=== PATIENT | female | born 1950 | race Caucasian/White ===

== ENCOUNTER 2019-12-27 22:06 | Inpatient (IN) | payer MEDICARE, SELFPAY ==
--- NOTE | ~2019-12-27 | CT_ITS ---
EXAMINATION: CT brain wo con INDICATION: Confusion COMPARISON: None TECHNIQUE: Standard unenhanced head CT. The dose-length product (DLP) was 605.33 mGy-cm. The mA was a djusted according to patient size. Iterative reconstruction technique was employed. FINDINGS: There is no acute intraparenchymal hemorrhage. No evidence of mass lesion. No evidence of a cute infarction. There is mild periventricular and subcortical hypodensity probably related to small vessel ischemic disease. There is mild prominence of the sulci and ventricles related to cerebral atr ophy. Intracranial calcified cerebral atherosclerosis is noted. There are no extra-axial collections. There is no mass effect or midline shift. The orbits and soft tissues are unremarkable. The visuali zed sinuses and mastoid air cells are well aerated. IMPRESSION: 1. No acute intracranial abnormality. 2. Age related findings. Reviewed, dictated and finalized at location A. EL SLAGMAN
--- NOTE | ~2019-12-27 | XR_ITS ---
EXAMINATION: XR chest 1V portable DATE: 12/30/2019 05:40 INDICATION: Respiratory failure. TECHNIQUE: A single frontal view of the chest was obtained. COMPARISON: Chest single view 12/29/2019, CT abdomen and pelvis 12/28/2019 FINDINGS: There are airspace opacities throughout the lungs bilaterally. No pleural effusion or pneum othorax. The heart size is normal. A right internal jugular central venous catheter is seen with tip in the superior vena cava. IMPRESSION: 1. Diffuse lung disease with worsening at the lung bases, consistent with pulmonary edema versus pneu monia versus acute respiratory distress syndrome (ARDS). Reviewed, dictated and finalized at location A. LATORY AND COMPLIANCE TECHNICIAN IMPRESSION: 1. Diffuse lung disease with worsening at the lung bases, consistent with pulmo nary edema versus pneumonia versus acute respiratory distress syndrome (ARDS).
--- NOTE | ~2019-12-27 | CT_ITS ---
EXAMINATION: CT abdomen pelvis wo con DATE: 12/28/2019 01:46 INDICATION: Abdominal distention. TECHNIQUE: Computed tomography (CT) of the abdomen and pelvis was performed without intravenous contr ast. Automated exposure control and iterative reconstruction technique were employed. The dose-length product was 1587.67 mGy-cm. COMPARISON: None FINDINGS: Patchy groundglass opacities in the lingula, right middle and bilateral lower lobes with additional m ore nodular/masslike region of consolidation in the left lower lobe. Small bilateral layering pleural effusions. Heart size is normal. Atherosclerotic coronary artery calcifications and aortic valve vianney cifications. No pericardial effusion. Small amount of predominantly perihepatic ascites. Nodular live r surface consistent with cirrhosis. Pneumobilia within the common bile duct consistent with given hi story of prior biliary stenting. Spleen and bilateral adrenal glands are normal. Atrophic pancreas. B ilateral kidneys are normal with no urolithiasis or hydronephrosis. Right hemicolectomy. No dilated bowel to suggest obstruction. Nonspecific fluid throughout the small bowel and colon consistent with diarrhea. Small Jacob hernia of the colon immediately proximal to t he anastomosis without evident wall thickening or inflammatory stranding surrounding the herniated se gment. Weiss catheter within the decompressed bladder. The uterus and ovaries are not identified and have likely been surgically resected. There is calcified atherosclerosis of the aorta and many of the other arteries. Severe lower lumbar spondylosis. Diffuse body wall edema at the abdomen and pelvis a nd extending into the proximal thighs. IMPRESSION: 1. Status post right hemicolectomy with nonobstructing small Jacob hernia of the colon immediately distal to the anastomosis. No evident wall thickening or inflammatory stranding associated with the h erniated segment. 2. Fluid throughout the small bowel and colon consistent with diarrhea. Correlate clinically for ange roenteritis/enteritis. 3. Cirrhosis with small amount of perihepatic ascites. 4. Airspace disease in the lower lungs with nodular/masslike consolidation in the left lower lobe con sistent with pneumonia potentially with associated pulmonary edema. Recommend radiographic follow-up to resolution. 5. Small bilateral pleural effusions. Reviewed, dictated and finalized at location A. MOTIVE SERVICE PORTER IMPRESSION: 1. Status post right hemicolectomy with nonobstructing small Jacob hernia of the colon immediately distal to the anastomosis. No evident wall thickening or inflammatory stranding associated with the herniated segment. 2. Fluid throughout the small bowel and colon consistent with diarrhea. Correla te clinically for gastroenteritis/enteritis. 3. Cirrhosis with small amount of perihepatic ascites. 4. Airspace disease in the lower lungs with nodular/masslike consolidation in t he left lower lobe consistent with pneumonia potentially with associated pulmon mariam edema. Recommend radiographic follow-up to resolution. 5. Small bilateral pleural effusions.
--- NOTE | ~2019-12-27 | US_ITS ---
EXAMINATION: US renal BI DATE: 12/29/2019 14:32 INDICATION: Acute renal failure. TECHNIQUE: Multiple ultrasound grayscale images of the kidneys were obtained. COMPARISON: CT abdomen and pelvis 12/28/2019 FINDINGS: The right kidney measures 10.0 x 5.1 x 5.0 cm. The left kidney measures 10.1 x 5.5 x 4.3 cm. The kidn eys demonstrate normal parenchymal echogenicity. There is no hydronephrosis. The bladder is decompres sed by a Weiss catheter. The liver demonstrates surface nodularity, consistent with cirrhosis. There is a small volume of ascites. IMPRESSION: 1. Normal kidney sizes. No hydronephrosis. 2. Cirrhosis of the liver. 3. Small volume of ascites. Reviewed, dictated and finalized at location A. GER VALIDATION
--- NOTE | ~2019-12-27 | XR_ITS ---
EXAMINATION: XR chest 1V portable INDICATION: Shortness of breath and transient alteration of awareness TECHNIQUE: Portable AP chest at 2317 hours COMPARISON: None available FINDINGS: There our diffuse airspace opacities, worst in the lung bases. Cardiomegaly is noted. No de finite pleural effusion or pneumothorax is identified. The visualized osseous structures are unremark able. IMPRESSION: 1. Diffuse lung disease, worst in the lung bases, consistent with atelectasis versus pneumonia versus pulmonary edema. 2. Cardiomegaly. Reviewed, dictated and finalized at location A. SUPERVISOR IMPRESSION: 1. Diffuse lung disease, worst in the lung bases, consistent with atelectasis v ersus pneumonia versus pulmonary edema. 2. Cardiomegaly.
--- NOTE | ~2019-12-27 | XR_ITS ---
EXAMINATION: XR chest 1V portable DATE: 12/29/2019 05:47 INDICATION: Respiratory failure TECHNIQUE: frontal view of the chest was obtained. COMPARISON: Chest radiograph dated 12/28/2019 FINDINGS: Right internal jugular central venous catheter with distal tip in the midsuperior vena cava. Interval progression of diffuse bilateral airspace opacities. No pleural effusion or pneumothorax. Th e cardiomediastinal silhouette is normal. IMPRESSION: 1. Progression of diffuse bilateral lung disease consistent with pulmonary edema and/or pneumonia. Reviewed, dictated and finalized at location A. R TENDER IMPRESSION: 1. Progression of diffuse bilateral lung disease consistent with pulmonary obie a and/or pneumonia.
--- NOTE | ~2019-12-27 | XR_ITS ---
EXAMINATION: XR chest port-a-cath/central DATE: 12/28/2019 05:31 INDICATION: Central line placement TECHNIQUE: frontal view of the chest was obtained. COMPARISON: Chest radiograph dated 12/27/2019 FINDINGS: Right internal jugular central venous catheter with distal tip at the midsuperior vena cava. Again se en are diffuse bilateral interstitial and airspace opacities with with basilar and perihilar predomin ance. Small left pleural effusion. No pneumothorax. The cardiomediastinal silhouette is normal. IMPRESSION: 1. Right internal jugular central venous catheter in expected position with no pneumothorax. 2. No significant change in diffuse bilateral perihilar and basilar predominant lung disease consiste nt with pulmonary edema versus pneumonia. 3. Small left pleural effusion. Reviewed, dictated and finalized at location A. PERSON IMPRESSION: 1. Right internal jugular central venous catheter in expected position with no pneumothorax. 2. No significant change in diffuse bilateral perihilar and basilar predominant lung disease consistent with pulmonary edema versus pneumonia. 3. Small left pleural effusion.
--- NOTE | 2019-12-27 22:14 | ECG_ITS ---
Measurements Intervals [place] Rate: 85 P: 78 NV: 157 QRS: 72 QRSD: 98 T: -60 QT: 314 QTc: 375 Interpretive Statements SINUS RHYTHM LOW QRS VOLTAGE IN LIMB LEADS BORDERLINE ST-T WAVE ABNORMALITY- DIFFUSE LEADS BASELINE ARTIFACT- II, III, AVF, V1-V5, V6 BORDERLINE ECG Electronically Signed On 12-28-2019 7:02:08 COP EXAMINER by Bertrand Crump D.O.
[2019-12-27 22:16] VITALS: BP 101/45; PULSE 83; RESP 16; TEMP 36.6; O2SAT 100
--- NOTE | 2019-12-27 22:18 | ED.SOB ---
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 Pt was found with an O2 saturation of 78% on room air and AMS by nursing staff. Pt?s O2 saturation improved to 80% on 3L NC. EMS initiated a non-rebreather at 15L at her O2 saturation increased to 98%. Pt?s Lasix were discontinued today d/t abnormal renal functions. Pt was on abx for a recent UTI. Pt?s family was at bedside and provided the information. Pt has had multiple falls in the last week. Pt was working two weeks ago. Pt was went to [facility] ED a few weeks ago for frequent falls and weakness. Pt's family states the pt was transferred from [facility] ED to [facility] for an ERCP biliary stent placement and then removed. Pt was d/c from [facility] on 12/20/19 and sent to [place] for rehab. Pt's family also reports the pt has had increased confusion. She states the pt's NH nurses are unsure if the pt is taking her medication. Patient has not been eating or drink either. Pt has been on oxygen since she arrived to [place], but the pt's family states the pt is not on oxygen at baseline. Per pt, pt also reports lower back pain, but denies CP and ABD pain. HPI is limited due to pt's clinical condition. MD elicited complaint: shortness of breath (and decreased level of consciousness) Pertinent past history: COPD and diabetes Onset (ago): minute(s) Timing: constant Severity: moderate Known history of: COPD and diabetes Associated symptoms: other (increased confusion, lower back pain) Treatment prior to arrival: oxygen Related Data Home oxygen amount: none Home Medications Medication Instructions Recorded Confirmed albuterol sulfate 90 mcg/actuation 1 puff INHALATION Q4H PRN 09/20/19 aerosol inhaler atorvastatin 10 mg tablet 10 mg PO DAILY 09/20/19 calcium-vitamin D2-iron mg PO 09/20/19 cetirizine 10 mg tablet 10 mg PO DAILY PRN tablet 09/20/19 cholecalciferol (vitamin D3) 125 5,000 unit PO DAILY 09/20/19 mcg (5,000 unit) capsule cholecalciferol (vitamin D3) 25,000 unit PO WEEKLY 09/20/19 25,000 unit capsule citalopram 20 mg tablet 20 mg PO DAILY 09/20/19 cyanocobalamin (vitamin B-12) 100 mcg SUB-Q MONTHLY 09/20/19 1,000 mcg/mL injection kit folic acid 1 mg tablet 1 mg PO DAILY 09/20/19 furosemide 20 mg tablet 20 mg PO QAM 09/20/19 gabapentin 800 mg tablet 800 mg PO QID tablet 09/20/19 melatonin 10 mg tablet 20 mg PO DAILY tablet 09/20/19 metformin 500 mg tablet 500 mg PO BID 09/20/19 metoprolol succinate 50 mg 50 mg PO DAILY 09/20/19 tablet,extended release 24 hr pantoprazole 40 mg tablet,delayed 40 mg PO QAM 09/20/19 release potassium chloride 20 mEq 20 meq PO DAILY 09/20/19 tablet,extended release tramadol 50 mg tablet 100 mg PO .qhs PRN tablet 09/20/19 Allergies Allergy/AdvReac Type Severity Reaction Status Date / Time doxycycline Allergy Unknown Rash Verified 12/27/19 22:36 indomethacin Allergy Unknown Rash Verified 12/27/19 22:36 mesalamine [From Asacol] Allergy Unknown Hives Verified 12/27/19 22:36 Review of Systems Review of Systems: ROS unobtainable: other (limited due to pt's clinical condition) Cardiovascular: Cardiovascular: Denies chest pain Respiratory: Respiratory: Reports dyspnea Gastrointestinal: Gastrointestinal: Denies abdominal pain Musculoskeletal: Musculoskeletal: Reports back pain (lower) Neurologic: Reports confusion and Reports other (decreased level of consciousness) [facility] Past Medical History Medical History (Updated 12/28/19 @ 08:27 by Windy Mccullough MD) Anemia Arthritis Cirrhosis CO
[2019-12-27 22:38] VITALS: PULSE 83
[2019-12-27 22:53] LABS: Alveolar/Arterial O2 Gradient 587.6 mmHg; Base Excess ABG -6.8 mEq/l (+/-2.0); Fractional Inspired Oxygen 100 %; HCO3 ABG 19.8 mEq/l (22.0-26.0); Oxygen Content ABG 13.5 %vol (16.0-22.0); Oxygen Saturation ABG 94.5 % (95.0-100.0); Oxyhemoglobin 93.1 % THb (90.0-100.0); PCO2 ABG 44.2 mmHg (35.0-45.0); PO2 ABG 81.2 mmHg (80.0-100.0); PO2 FiO2 Ratio Arterial Blood 0.81 %; Total Hemoglobin 10.2 g/dL (12.0-18.0)
[2019-12-27 22:56] LABS: Glucose Point of Care 90 (65-105)
[2019-12-27 22:56] LABS: Modified Allen's Test Pass; Site Drawn LEFT RADIAL; pH ABG 7.269 (7.350-7.450)
[2019-12-27 22:57] LABS: Device NON-REBREATHER MASK
[2019-12-27 23:45] VITALS: BP 108/46; PULSE 84; RESP 14; O2SAT 98
[2019-12-28] VITALS (22 sets, daily range): BP systolic 89–115; BP diastolic 35–69; PULSE 81–107; RESP 14–28; TEMP 36.9–37.2; O2SAT 90–100; BMI 43.9
[2019-12-28 00:02] LABS: Basophils Percent Auto 0.3 % (0.2-1.2); Eosinophils Absolute Auto 0.1 K/mm3 (0-0.3); Eosinophils Percent Auto 0.7 % (0-4.4); Hematocrit 32.7 % (37.0-47.0); Hemoglobin 10.3 g/dL (12.0-15.0); Immature Granulocyte Absolute 0.05 K/mm3 (0.00-0.031); Immature Granulocyte Percent A 0.7 % (0-0.5); Lymphocytes Absolute Auto 0.84 K/mm3 (0.9-3.2); Lymphocytes Percent Auto 11.4 % (18.3-44.2); Mean Corpuscular HGB Conc 31.5 g/dl (32-36); Mean Corpuscular Hemoglobin 30.9 pg (26-34); Mean Corpuscular Volume 98.2 fl (80-100); Mean Platelet Volume 12.5 fl (7.4-10.4); Monocytes Absolute Auto 0.7 K/mm3 (0.1-0.6); Neutrophils Absolute Auto 5.7 K/mm3 (1.3-6.7); Neutrophils Percent Auto 77.9 % (45.5-73.1); Platelet Count Result 117 k/mm3 (150-375); Red Blood Count 3.33 M/mm3 (4.2-5.4); Red Cell Distribution Width 21.6 % (11.5-14.5); White Blood Count 7.4 K/mm3 (4.5-10.0)
[2019-12-28 00:12] LABS: INR 2.1; Prothrombin Time 23.3 Seconds (11.1-14.7)
[2019-12-28 00:13] LABS: Partial Thromboplastin Time 49.4 SECONDS (22.3-36.8)
[2019-12-28 00:14] LABS: Lactic Acid Reflex 2.4 mmol/L (0.7-2.1)
[2019-12-28 00:16] LABS: Ammonia < 9 umol/L (9-30)
[2019-12-28 00:17] LABS: Alanine Aminotransferase 38 U/L (4-35); Albumin Level 2.1 g/dL (3.5-5.1); Alkaline Phosphatase 235 U/L (38-126); Aspartate Amino Transferase 60 U/L (14-36); Bilirubin,Total 3.3 mg/dL (0.2-1.3); Blood Urea Nitrogen 58 mg/dL (7-17); Carbon Dioxide 16 mmol/L (22-30); Chloride 118 mmol/L (98-107); Estimated Glomerular Filt Rate 15; Glucose 95 mg/dL (65-105); Lipase 27 U/L (23-300); Magnesium 2.1 mg/dL (1.6-2.3); Potassium 5.5 mmol/L (3.4-5.0); Sodium 146 mmol/L (137-145)
[2019-12-28 00:27] LABS: NT Pro B Type Natriuretic Pept 2250 PG/ML (5-100); Troponin I 0.024 ng/mL (0.000-0.034)
[2019-12-28] MEDS: ALBUTEROL SULFATE NEB 2.5 MG/0.5 ML INH 10 MG INHALATION (00:43)
[2019-12-28 00:53] LABS: Add Urine Microscopic? YES; Appearance Urine Clear (Clear); Bilirubin Urine Negative (Negative); Blood Urine Negative (Negative); Color Urine Amber (Yellow); Glucose Urine UA Negative (Negative); Ketones Urine Negative (Negative); Leukocyte Esterase Ur Negative LEU/UL (Negative); Nitrate Urine Negative (Negative); Protein Urine Negative (Negative); Specific Grav Ur 1.017 (1.001-1.035); Urobilinogen Urine Negative mg/dL (<2.0)
[2019-12-28 02:59] LABS: Reflex Lactic Acid Yes or No Add Lactic
--- NOTE | 2019-12-28 03:06 | PC.NURSE ---
Main lab was called to draw lactic ordered for pt. Lab stated that previous attempts to draw took multiple attempts and believed any further attempts would be unsuccessful. Charge nurse Zhane Bradley and nurse Mary Campos notified.
[2019-12-28] MEDS: NOREPINEPHRINE 8 MG/D5W 250 ML 8 MG/250 ML BAG 9.4 MG IV CONT (05:58)
--- NOTE | 2019-12-28 06:21 | PM.IMHP ---
H&P: HPI History of Present Illness Chief complaint: acute renal failure,pneumonia,chf Narrative: Caren Garnica is a 69 year old female the patient recently was placed in [facility] a stay with [facility] for liver failure. The patient is currently add DNR. The patient had a sudden onset of shortness of breath and decreased level of consciousness just prior to arrival. The son stated that the patient's ammonia level had gone back to normal. Patient's O2 pulse ox was 78% on room air. Patient was placed on a non-rebreather at 15 L in her oxygen level increased to 98%. Patient was recently diagnosed with MRSA to her right hand in abdomen. The patient had been discharged from a [facility] on in sent to [place] for rehab. Is unsure if the patient was taking her medications at [place]. Patient is confused at this time and not able to answer any questions or son is at the bedside and answered questions. Her BMP was found to be 2250. Total bilirubin 3.3. Alkaline phosphatase 235. Patient was started on Zosyn and vancomycin. Patient appeared to be septic and a central line was placed per ED provider patient was started on Levophed. Date of service 12/28/2019 Review of Systems Review of Systems: Narrative: And information was obtained from the son and old records. All systems reviewed & are unremarkable except as noted in HPI and below Constitutional: Constitutional: Reports as per HPI and Reports no additional constitutional complaints Eyes: Eyes: Reports as per HPI and Reports no additional eye complaints ENT: Reports system reviewed and no additional complaints, except as documented and Reports Normal hearing present Cardiovascular: Cardiovascular: Reports no additional cardiovascular complaints Respiratory: Respiratory: Reports no additional respiratory complaints and Reports no additional respiratory complaints Gastrointestinal: Gastrointestinal: Reports as per HPI and Reports no additional gastrointestinal complaints Musculoskeletal: Musculoskeletal: Reports no additional musculoskeletal complaints Integumentary/Breasts: Skin/Breast: Reports system reviewed and no additional complaints, except as docu and Reports as per HPI Neurologic: Reports system reviewed and no additional complaints, except as documented, Reports as per HPI and Reports Normal hearing present Psychiatric: Psychiatric: Reports no additional psychiatric complaints and Reports as per HPI Endocrine: Endocrine: Reports no additional endocrine complaints Hematologic/Lymphatic: Hematologic/Lymphatic: Reports no additional hematologic/lymphatic complaints Allergic/Immunologic: Allergic/Immunologic: Reports no additional allergic/immunologic complaints [facility] Past Medical History Medical History Anemia Arthritis Cirrhosis COPD (chronic obstructive pulmonary disease) Crohn's disease Depression Diabetes DNR (do not resuscitate) Frequent falls Generalized osteoarthritis of multiple sites MRSA (methicillin resistant Staphylococcus aureus) Pancreatitis 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 Rapid heart rate Seronegative rheumatoid arthritis of both hands UTI (urinary tract infection) Vitamin D deficiency Weight loss, abnormal Surgical History Surgical History H/O vaginal hysterectomy History of bowel resection x2 History of cholecystectomy History of ERCP History of knee replacement Hx of appendectomy Stented coronary artery Family History Family History Father Cancer Grandparent Cerebrovascular accident Grandparent Cerebrovascular accident Grandparent Cancer Social History Social History Social History: Patient is [place] to Braden who is her durable power mergers and acquisitions attorney for healt
--- NOTE | 2019-12-28 06:30 | ADMGEN ---
This patient, Caren Garnica, was admitted to Intensive Care Unit-6. Patient/family oriented to hospital policies and general routines including ID bracelet, bed and alarms, visiting hours, pain management, procedures, bathroom and other care routines, personal items, smoking policy, room service/diet, and visiting hours. Valuables list has been completed. Information on how to activate the Rapid Response Team has been discussed. Patient/Family are encouraged to report perceived risks to care and to ask questions if they do not understand what they are told or what they should do.
[2019-12-28 06:49] LABS: Alveolar/Arterial O2 Gradient 204.6 mmHg; Base Excess ABG -8.7 mEq/l (+/-2.0); Fractional Inspired Oxygen 44 %; HCO3 ABG 17.3 mEq/l (22.0-26.0); Oxygen Content ABG 12.6 %vol (16.0-22.0); Oxygen Saturation ABG 90.7 % (95.0-100.0); Oxyhemoglobin 88.1 % THb (90.0-100.0); PCO2 ABG 37.8 mmHg (35.0-45.0); Total Hemoglobin 10.1 g/dL (12.0-18.0)
[2019-12-28 06:50] LABS: Device NASAL CANNULA; Modified Allen's Test Pass; Site Drawn LEFT RADIAL; pH ABG 7.279 (7.350-7.450)
[2019-12-28 07:07] LABS: Lactic Acid 2.2 mmol/L (0.7-2.1)
[2019-12-28 07:08] LABS: Alanine Aminotransferase 37 U/L (4-35); Albumin Level 2.1 g/dL (3.5-5.1); Alkaline Phosphatase 221 U/L (38-126); Aspartate Amino Transferase 54 U/L (14-36); Bilirubin,Total 3.2 mg/dL (0.2-1.3); Blood Urea Nitrogen 56 mg/dL (7-17); Calcium 7.9 mg/dL (8.4-10.2); Carbon Dioxide 19 mmol/L (22-30); Chloride 119 mmol/L (98-107); Estimated CRCL calculation 17 ml/min; Estimated Glomerular Filt Rate 13; Glucose 114 mg/dL (65-105); Sodium 145 mmol/L (137-145)
[2019-12-28 07:12] LABS: Basophils Percent Auto 0.1 % (0.2-1.2); Eosinophils Percent Auto 0.5 % (0-4.4); Hematocrit 27.7 % (37.0-47.0); Immature Granulocyte Absolute 0.07 K/mm3 (0.00-0.031); Immature Granulocyte Percent A 0.9 % (0-0.5); Immature Platelet Fraction Pct 7.5 % (0.9-11.2); Lymphocytes Absolute Auto 0.53 K/mm3 (0.9-3.2); Lymphocytes Percent Auto 6.8 % (18.3-44.2); Mean Corpuscular HGB Conc 32.5 g/dl (32-36); Mean Corpuscular Hemoglobin 31.1 pg (26-34); Mean Corpuscular Volume 95.8 fl (80-100); Monocytes Absolute Auto 0.7 K/mm3 (0.1-0.6); Monocytes Percent Auto 8.5 % (2.6-8.5); Neutrophils Absolute Auto 6.5 K/mm3 (1.3-6.7); Neutrophils Percent Auto 83.2 % (45.5-73.1); Platelet Count Result 113 k/mm3 (150-375); Red Blood Count 2.89 M/mm3 (4.2-5.4); Red Cell Distribution Width 21.2 % (11.5-14.5); White Blood Count 7.8 K/mm3 (4.5-10.0)
[2019-12-28] MEDS: SODIUM CHLORIDE 0.9% IV 500 ML IV CONT (08:08)
[2019-12-28 08:15] LABS: Glucose Point of Care 119 (65-105)
[2019-12-28] MEDS: ALBUTEROL SULFATE NEB 2.5 MG/0.5 ML INH 5 MG INHALATION ×3 (08:20→20:42)
[2019-12-28] MEDS: IPRATROPIUM BR 0.02% INH SOLN 0.5 MG/2.5 ML VIAL INHALATION ×3 (08:20→20:42)
--- NOTE | 2019-12-28 08:49 | WPDCNINT ---
Assessment and Plan Assessment and plan (1) Septic shock: Code(s): A41.9 - Sepsis, unspecified organism; R65.21 - Severe sepsis with septic shock Status: Acute Assessment and Plan: Secondary to HCAP Pt is overall voluem overloaded and also DNR/DNI hence didnt receive 30 ml/kg IVF bolus On levophed I will give small 500 ml IVF bolus and add IV albumin Cultures On empiric Vanc and Zosyn Check Flu (2) HCAP (healthcare-associated pneumonia): Code(s): J18.9 - Pneumonia, unspecified organism Status: Acute Assessment and Plan: See above (3) Acute renal failure (ARF): Code(s): N17.9 - Acute kidney failure, unspecified Status: Acute Assessment and Plan: Likley secondary to sepsis and intranvascular voluem depletion from diuresis Diuretics held Gentle hydration with IVF with bicarb in light of overall volume overload IV albumin Bicarb to treat acidosis Monitor U/O and labs Pt doesn't want HD if needed (4) Acidosis: Code(s): E87.2 - Acidosis Status: Acute Assessment and Plan: Gentle hydration with IVF with bicarb PO bicarb (5) Cirrhosis: Code(s): K74.60 - Unspecified cirrhosis of liver Status: Chronic Assessment and Plan: Ammonia level normal Vit K for elevated INR IV Albumin (6) Anemia: Code(s): D64.9 - Anemia, unspecified Status: Chronic Assessment and Plan: Monitor (7) COPD (chronic obstructive pulmonary disease): Code(s): J44.9 - Chronic obstructive pulmonary disease, unspecified Status: Chronic Assessment and Plan: PRN Duoneb (8) CHF (congestive heart failure): Code(s): I50.9 - Heart failure, unspecified Status: Acute (9) Diabetes: Code(s): E11.9 - Type 2 diabetes mellitus without complications Status: Chronic Assessment and Plan: SSI Additional Plan SCD for DVTP Home PPI confirmed Pt is DNR and DNI. Also doesn't want dialysis if needed. I confirmed this with pt and her son and daughter at bedside. Updated them with pt's status and treatment plan Due to a high probability of clinically significant, life threatening deterioration, the patient required my highest level of preparedness to intervene emergently and I personally spent this critical care time directly and personally managing the patient. This critical care time included obtaining a history; examining the patient; pulse oximetry; ordering and review of studies; arranging urgent treatment with development of a management plan; evaluation of patient's response to treatment; frequent reassessment; and discussions with other providers. It was exclusive of separately billable procedures and treating other patients and teaching time. Please see Assessment and Plan section and the rest of the note for further information on patient assessment and treatment Cashier Manager Consult Note Consult date: 12/28/19 Time Seen: 08:30 HPI: Caren Garnica is a 69 year old female was sent from [place] with low oxygen levels. She was in [place] for rehab and was recently discharged from [facility]. In ED she was found to be hypoxic and was placed on 15 L NC. CXR showed infiltrate and w/u showed ANGELIQUE. Pt was also hypotensive. She was started on abx, levophed and admitted to ICU This morning she feels better. She denies any complaints and not sure why she is here. pt is poor historian and doesn't have any complaints at this time Review of Systems Review of Systems: Narrative: Pt essentially says No to all complaints. Not sure how reliable it is. She says no to pain, dyspnea, cough, chest pain, abdominal pain or fever ROS unobtainable: unobtainable due to mental condition PMFSH Past Medical History Medical History Anemia Arthritis Cirrhosis COPD (chronic obstructive pulmonary disease) Crohn's disease Depression Diabetes DNR (do not resuscitate) Frequent falls Genera
[2019-12-28] MEDS: ALBUMIN HUMAN 25% 25 GM/100 ML 100 ML IVPB ×3 (08:51→21:12)
--- NOTE | 2019-12-28 09:22 | PM.IMPN ---
Progress Note: A&P Assessment and Plan (1) Septic shock: Code(s): A41.9 - Sepsis, unspecified organism; R65.21 - Severe sepsis with septic shock Status: Acute Assessment and Plan: Remains in ICU. Remains on Levophed. Blood pressure reviewed on 12/28/2019 and stable. Telemetry reviewed on 12/28/2019 with sinus rhythm. Discussed with lead process engineer. Plan for small bolus of IV fluids with IV albumin. Blood cultures negative thus far. MRSA nasal culture pending. Influenza screen negative in the ER. Continue IV vancomycin and Zosyn. Will continue to monitor closely. Patient is DNR/DNI. (2) HCAP (healthcare-associated pneumonia): Code(s): J18.9 - Pneumonia, unspecified organism Status: Acute Assessment and Plan: Imaging with diffuse bilateral lung disease. Continue IV antibiotics as noted above. Influenza screen negative as above. Continue nebulizer treatments. Will monitor. (3) Acute renal failure (ARF): Qualifiers: Acute renal failure type: unspecified Qualified Code(s): N17.9 - Acute kidney failure, unspecified Code(s): N17.9 - Acute kidney failure, unspecified Status: Acute Assessment and Plan: Creatinine 3.50 today. Will continue to monitor with treatment of infection. Does not want hemodialysis. (4) Acidosis: Code(s): E87.2 - Acidosis Status: Acute Assessment and Plan: IV fluids as noted above. Will continue to monitor. Oral bicarb started. (5) Cirrhosis: Qualifiers: Hepatic cirrhosis type: unspecified hepatic cirrhosis Ascites presence: unspecified Qualified Code(s): K74.60 - Unspecified cirrhosis of liver Code(s): K74.60 - Unspecified cirrhosis of liver Status: Chronic Assessment and Plan: Continue to monitor with infectious process as noted above. (6) Anemia: Qualifiers: Anemia type: unspecified type Qualified Code(s): D64.9 - Anemia, unspecified Code(s): D64.9 - Anemia, unspecified Status: Chronic (7) COPD (chronic obstructive pulmonary disease): Qualifiers: COPD type: unspecified COPD Qualified Code(s): J44.9 - Chronic obstructive pulmonary disease, unspecified Code(s): J44.9 - Chronic obstructive pulmonary disease, unspecified Status: Chronic Assessment and Plan: Continue respiratory treatments as noted above. (8) CHF (congestive heart failure): Qualifiers: Heart failure type: unspecified Heart failure chronicity: chronic Qualified Code(s): I50.9 - Heart failure, unspecified Code(s): I50.9 - Heart failure, unspecified Status: Acute Assessment and Plan: Will be careful with rehydration. Will continue to monitor. (9) Diabetes: Qualifiers: Diabetes mellitus type: type 2 Diabetes mellitus adjunct faculty for medical terminology insulin use: without senior living use Diabetes mellitus complication status: without complication Qualified Code(s): E11.9 - Type 2 diabetes mellitus without complications Code(s): E11.9 - Type 2 diabetes mellitus without complications Status: Chronic Assessment and Plan: Hold home medications. Will continue to monitor glucose. Sliding scale insulin available as needed. (10) Depression: Qualifiers: Depression Type: unspecified Qualified Code(s): F32.9 - Major depressive disorder, single episode, unspecified Code(s): F32.9 - Major depressive disorder, single episode, unspecified Status: Chronic Assessment and Plan: Home medications not reconciled but appears to be on citalopram at home. Will hold for now but restart when appropriate. (11) DVT prophylaxis: Code(s): Z29.9 - Encounter for prophylactic measures, unspecified Status: Acute Assessment and Plan: SCDs. Time Spent With Patient Time with patient: 15 - 25 minutes Subjective Date/time seen: 12/28/19 09:22 Interval history: Date of Service: 12/28/2019. Ad
[2019-12-28] MEDS: SODIUM BICARBONATE 8.4% 150 MEQ in DEXTROSE 5% 1,000 ML 950 ML 50 MEQ IV CONT (11:22)
[2019-12-28 11:41] LABS: Influenza Control Positive
[2019-12-28 11:46] LABS: Ammonia < 9 umol/L (9-30)
[2019-12-28 12:26] LABS: Glucose Point of Care 108 (65-105)
[2019-12-28 17:40] LABS: Glucose Point of Care 100 (65-105)
[2019-12-28] MEDS: SODIUM BICARBONATE TAB 650 MG TABLET 1300 MG PO (17:47)
[2019-12-28] MEDS: NOREPINEPHRINE 8 MG/D5W 250 ML 8 MG/250 ML BAG 22.5 MG IV CONT (18:17)
--- NOTE | 2019-12-28 19:25 | PM.CNNEP ---
Assessment and Plan Assessment and plan (1) Acute renal failure (ARF): Qualifiers: Acute renal failure type: unspecified Qualified Code(s): N17.9 - Acute kidney failure, unspecified Code(s): N17.9 - Acute kidney failure, unspecified Status: Acute (2) Septic shock: Code(s): A41.9 - Sepsis, unspecified organism; R65.21 - Severe sepsis with septic shock Status: Acute (3) HCAP (healthcare-associated pneumonia): Code(s): J18.9 - Pneumonia, unspecified organism Status: Acute (4) Cirrhosis: Qualifiers: Ascites presence: unspecified Hepatic cirrhosis type: unspecified hepatic cirrhosis Qualified Code(s): K74.60 - Unspecified cirrhosis of liver Code(s): K74.60 - Unspecified cirrhosis of liver Status: Chronic (5) Diabetes: Qualifiers: Diabetes mellitus complication status: without complication Diabetes mellitus jail insulin use: without oysterman use Diabetes mellitus type: type 2 Qualified Code(s): E11.9 - Type 2 diabetes mellitus without complications Code(s): E11.9 - Type 2 diabetes mellitus without complications Status: Chronic Assessment and Plan: . Additional Plan Caren has acute kidney injury/acute renal failure as evidenced by her admission labs. The most likely etiology for her acute kidney injury is likely acute tubular necrosis secondary to her hemodynamic instability/shock possibly worsened by some underlying infectious process with regard to pneumonia or her previous history of MRSA infection on her last hospitalization at [facility]. Currently she remains on vasopressor therapy to maintain her mean arterial pressure and hopefully with aggressive interventions that has been instituted, her overall kidney function will improve as her acute illness does although it is difficult to say how long this will take. By concern of course is that her kidney function may deteriorate further and she may require more invasive interventions (renal replacement therapy/dialysis) until her renal function stabilizes. I did have a very long lengthy discussion with the patient as well as her family at bedside (greater than 20 minutes) regarding the possible need for dialysis should her kidney function continue to deteriorate-both the patient and her family agree that they would not want to pursue dialysis as a therapeutic option even if it was a last resort treatment. For now, I would continue conservative therapy this or be instituted follow up on the pending test with regard to her ultrasound urine electrolytes...etc, and follow the trend of her repeat labs and urine output. I will continue follow the patient with you while she remains hospitalized and make further recommendations during her hospital course. Thank you for allowing me to participate in the care of this patient. History of Present Illness Reason for Consult Consult date: 12/28/19 Reason for consult: acute renal failure Chief Complaint Chief complaint: acute renal failure,pneumonia,chf History of Present Illness Narrative: The patient is a 69 year old female with a past medical history as outlined below who presented to [facility] ER with shortness of breath and altered mental status. The shortness of breath was rather sudden in onset and seemed to correlate with her decreased level on consciousness. Upon presentation, her pulse oximetry was reading at 78% on room air. Her oxygenation saturation improved to 98% after being placed on a non-rebreather mask. Further evaluation in the ER demonstrated the patient to be hypotensive and her CXR showed infiltrate. Blood work demonstrated acute renal failure as well. A central line was placed and she was started on levophed + antibiotics after appropriate cultures were drawn and she was subsequently admitted to the ICU. Renal consultation was requested due to her admission findings of acute kidn
[2019-12-29] VITALS (25 sets, daily range): BP systolic 104–127; BP diastolic 36–112; PULSE 102–118; RESP 20–28; TEMP 36.8–37.4; O2SAT 22–100
--- NOTE | 2019-12-29 | ECHO_ITS ---
Patient Info Name: Caren Garnica Age: 69 years : 1950 Gender: Female Ht: 64 in Wt: 252 lbs BSA: 2.33 m2 HR: 114 bpm BP: 127 / 43 mmHg Heart Rhythm: Tachycardia Technical Quality: Fair Exam Date: 12/29/2019 1:10 PM Exam Location: [facility] Pulmonary Exam Room: ICU- Patient Status: Inpatient Admit Date: 12/28/2019 Staff Ordering Physician: Mu Ernandez MD Associate Software Development Engineer: Lakshmi Hernández RDCS Attending Provider: Jayesh William MD Referring Physician: Oma OSWALD; Exam Type: CA echo doppler color flow Study Info Indications - sob berrios chf Complete two-dimensional, color flow and Doppler transthoracic echocardiogram is performed. Summary 1. Left ventricular systolic function is hyperdynamic, estimated at >75%. 2. There is no increased left ventricular wall thickness. 3. The left ventricular diastolic function is grade I diastolic dysfunction. 4. There is no aortic valve stenosis. 5. There is trace mitral valve regurgitation. 6. There is mild tricuspid valve regurgitation. 7. Moderate pulmonary hypertension, estimated pulmonary arterial systolic pressure is 54 mmHg. 8. Normal inferior vena cava with >50% collapse upon inspiration consistent with normal right atrial pressure, 5 mmHg. 9. There is trivial pericardial effusion. Left Ventricle Left ventricular chamber dimension is normal. Left ventricular systolic function is hyperdynamic, estimated at >75%. There is no increased left ventricular wall thickness. The left ventricular diastolic function is grade I diastolic dysfunction. Right Ventricle Right ventricular chamber dimension is normal. Right ventricular systolic function is normal. Left Atria Left atrial chamber dimension is normal. Right Atria Right atrial chamber dimension is normal. Aortic Valve The aortic valve is not well visualized. There is no aortic valve stenosis. There is no aortic valve regurgitation. Pulmonic Valve The pulmonic valve is not well visualized. There is trace pulmonic regurgitation. Mitral Valve The mitral valve has thickened leaflets. There is trace mitral valve regurgitation. The mitral valve annulus is mildly calcified. Tricuspid Valve The tricuspid valve leaflets are normal. There is mild tricuspid valve regurgitation. Moderate pulmonary hypertension, estimated pulmonary arterial systolic pressure is 54 mmHg. Pericardium/Pleural The pericardium appears normal. There is trivial pericardial effusion. Inferior Vena Cava Normal inferior vena cava with >50% collapse upon inspiration consistent with normal right atrial pressure, 5 mmHg. Aorta The aortic root size at the sinus of Valsalva is normal. Left Ventricular Outflow Tract Name Value Normal LVOT 2D LVOT Diameter 2.0 cm LVOT Doppler LVOT Peak Gradient 8 mmHg LVOT Mean Gradient 5 mmHg LVOT VTI 25 cm LVOT VTI/AV VTI Ratio 0.8 LVOT Stroke Volume 77 ml LVOT CO 20.2 l/min
[2019-12-29] MEDS: ALBUTEROL SULFATE NEB 2.5 MG/0.5 ML INH 5 MG INHALATION ×4 (02:28→20:55)
[2019-12-29] MEDS: IPRATROPIUM BR 0.02% INH SOLN 0.5 MG/2.5 ML VIAL INHALATION ×4 (02:28→20:55)
[2019-12-29 02:33] LABS: Glucose Point of Care 99 (65-105)
[2019-12-29] MEDS: ALBUMIN HUMAN 25% 25 GM/100 ML 100 ML IVPB ×4 (02:59→20:08)
[2019-12-29] MEDS: NOREPINEPHRINE 8 MG/D5W 250 ML 8 MG/250 ML BAG 22.5 MG IV CONT (05:27)
[2019-12-29 05:38] LABS: Basophils Percent Auto 0.3 % (0.2-1.2); Eosinophils Absolute Auto 0.1 K/mm3 (0-0.3); Eosinophils Percent Auto 1.3 % (0-4.4); Hematocrit 24.1 % (37.0-47.0); Hemoglobin 7.9 g/dL (12.0-15.0); Immature Granulocyte Absolute 0.03 K/mm3 (0.00-0.031); Immature Granulocyte Percent A 0.5 % (0-0.5); Immature Platelet Fraction Pct 5.6 % (0.9-11.2); Lymphocytes Absolute Auto 0.84 K/mm3 (0.9-3.2); Lymphocytes Percent Auto 13.2 % (18.3-44.2); Mean Corpuscular HGB Conc 32.8 g/dl (32-36); Mean Corpuscular Hemoglobin 30.9 pg (26-34); Mean Corpuscular Volume 94.1 fl (80-100); Mean Platelet Volume 13.2 fl (7.4-10.4); Monocytes Absolute Auto 0.6 K/mm3 (0.1-0.6); Monocytes Percent Auto 9.1 % (2.6-8.5); Neutrophils Absolute Auto 4.8 K/mm3 (1.3-6.7); Neutrophils Percent Auto 75.6 % (45.5-73.1); Platelet Count Result 89 k/mm3 (150-375); Red Blood Count 2.56 M/mm3 (4.2-5.4); Red Cell Distribution Width 21.3 % (11.5-14.5); White Blood Count 6.3 K/mm3 (4.5-10.0)
[2019-12-29 05:46] LABS: INR 2.7
[2019-12-29 05:51] LABS: Alanine Aminotransferase 26 U/L (4-35); Albumin Level 2.8 g/dL (3.5-5.1); Alkaline Phosphatase 168 U/L (38-126); Aspartate Amino Transferase 46 U/L (14-36); Blood Urea Nitrogen 60 mg/dL (7-17); Carbon Dioxide 20 mmol/L (22-30); Chloride 116 mmol/L (98-107); Estimated CRCL calculation 16 ml/min; Estimated Glomerular Filt Rate 12; Glucose 91 mg/dL (65-105); Magnesium 2.1 mg/dL (1.6-2.3); Potassium 4.8 mmol/L (3.4-5.0); Sodium 147 mmol/L (137-145)
[2019-12-29] MEDS: PANTOPRAZOLE 40 MG TABLET PO (08:33)
[2019-12-29] MEDS: SODIUM BICARBONATE TAB 650 MG TABLET 1300 MG PO (08:33)
--- NOTE | 2019-12-29 08:49 | PM.IMPN ---
Progress Note: A&P Assessment and Plan (1) Septic shock: Code(s): A41.9 - Sepsis, unspecified organism; R65.21 - Severe sepsis with septic shock Status: Acute Assessment and Plan: Criteria met on admission. Result of pneumonia. Remains in ICU. Remains on Levophed. Blood pressure reviewed on 12/29/2019 and stable. Telemetry reviewed on 12/29/2019 with sinus rhythm. Discussed with funnel setter. Blood cultures negative thus far. MRSA nasal culture pending. Influenza screen negative in the ER. Continue IV vancomycin and Zosyn. Will continue to monitor closely. Patient is DNR/DNI. (2) HCAP (healthcare-associated pneumonia): Code(s): J18.9 - Pneumonia, unspecified organism Status: Acute Assessment and Plan: Imaging with diffuse bilateral lung disease. Continue IV antibiotics as noted above. Influenza screen negative as above. Continue nebulizer treatments. Now on high-flow oxygen. Will monitor closely. (3) Acute renal failure (ARF): Qualifiers: Acute renal failure type: unspecified Qualified Code(s): N17.9 - Acute kidney failure, unspecified Code(s): N17.9 - Acute kidney failure, unspecified Status: Acute Assessment and Plan: Creatinine worse at 3.70 today. Nephrology consulted and appreciate input. Will monitor. (4) Acidosis: Code(s): E87.2 - Acidosis Status: Acute Assessment and Plan: IV fluids as noted above. Will continue to monitor. Continue IV and oral bicarb started. (5) Cirrhosis: Qualifiers: Ascites presence: unspecified Hepatic cirrhosis type: unspecified hepatic cirrhosis Qualified Code(s): K74.60 - Unspecified cirrhosis of liver Code(s): K74.60 - Unspecified cirrhosis of liver Status: Chronic Assessment and Plan: Continue to monitor with infectious process as noted above. (6) Anemia: Qualifiers: Anemia type: unspecified type Qualified Code(s): D64.9 - Anemia, unspecified Code(s): D64.9 - Anemia, unspecified Status: Chronic Assessment and Plan: Hemoglobin decreased to 7.9 today but may be partially dilutional. Will monitor. (7) COPD (chronic obstructive pulmonary disease): Qualifiers: COPD type: unspecified COPD Qualified Code(s): J44.9 - Chronic obstructive pulmonary disease, unspecified Code(s): J44.9 - Chronic obstructive pulmonary disease, unspecified Status: Chronic Assessment and Plan: Continue respiratory treatments as noted above. (8) CHF (congestive heart failure): Qualifiers: Heart failure chronicity: chronic Heart failure type: unspecified Qualified Code(s): I50.9 - Heart failure, unspecified Code(s): I50.9 - Heart failure, unspecified Status: Acute Assessment and Plan: Echocardiogram with EF greater than 75%, grade 1 diastolic dysfunction and moderate pulmonary hypertension. Will continue to monitor with hydration. (9) Diabetes: Qualifiers: Diabetes mellitus complication status: without complication Diabetes mellitus long term care social worker insulin use: without long term care social worker use Diabetes mellitus type: type 2 Qualified Code(s): E11.9 - Type 2 diabetes mellitus without complications Code(s): E11.9 - Type 2 diabetes mellitus without complications Status: Chronic Assessment and Plan: Glucose reviewed on 12/29/2019 and stable. Will continue to hold home medications. Will continue to monitor glucose. Sliding scale insulin available as needed. (10) Depression: Qualifiers: Depression Type: unspecified Qualified Code(s): F32.9 - Major depressive disorder, single episode, unspecified Code(s): F32.9 - Major depressive disorder, single episode, unspecified Status: Chronic Assessment and Plan: Will hold home citalopram for now given her situation. Will monitor. (11) DVT prophylaxis: Code(s): Z29.9 - Encounter for pro
--- NOTE | 2019-12-29 11:51 | WPDINTPN ---
Progress Note: A&P Assessment and Plan (1) Septic shock: Code(s): A41.9 - Sepsis, unspecified organism; R65.21 - Severe sepsis with septic shock Status: Acute Assessment and Plan: Secondary to HCAP patient appears dry, will give 500 mL IV fluids On levophed, maintain MAP > 65 mmHg blood cultures obtained and pending On empiric Vanc and Zosyn Influenza negative (2) HCAP (healthcare-associated pneumonia): Code(s): J18.9 - Pneumonia, unspecified organism Status: Acute Assessment and Plan: See above (3) Acute renal failure (ARF): Qualifiers: Acute renal failure type: unspecified Qualified Code(s): N17.9 - Acute kidney failure, unspecified Code(s): N17.9 - Acute kidney failure, unspecified Status: Acute Assessment and Plan: Likley secondary to sepsis and intranvascular voluem depletion from diuresis Diuretics held Gentle hydration with IVF, Bicarb tablets to treat acidosis continue albumin IV Monitor U/O and labs Pt doesn't want HD if needed (4) Acidosis: Code(s): E87.2 - Acidosis Status: Acute Assessment and Plan: Gentle hydration with IVF PO bicarb (5) Cirrhosis: Qualifiers: Ascites presence: unspecified Hepatic cirrhosis type: unspecified hepatic cirrhosis Qualified Code(s): K74.60 - Unspecified cirrhosis of liver Code(s): K74.60 - Unspecified cirrhosis of liver Status: Chronic Assessment and Plan: Ammonia level normal Vit K for elevated INR IV Albumin (6) Anemia: Qualifiers: Anemia type: unspecified type Qualified Code(s): D64.9 - Anemia, unspecified Code(s): D64.9 - Anemia, unspecified Status: Chronic Assessment and Plan: Monitor (7) COPD (chronic obstructive pulmonary disease): Qualifiers: COPD type: unspecified COPD Qualified Code(s): J44.9 - Chronic obstructive pulmonary disease, unspecified Code(s): J44.9 - Chronic obstructive pulmonary disease, unspecified Status: Chronic Assessment and Plan: PRN Duoneb (8) CHF (congestive heart failure): Qualifiers: Heart failure chronicity: chronic Heart failure type: unspecified Qualified Code(s): I50.9 - Heart failure, unspecified Code(s): I50.9 - Heart failure, unspecified Status: Acute Assessment and Plan: will obtain echocardiogram (9) Diabetes: Qualifiers: Diabetes mellitus type: type 2 Diabetes mellitus ocean forwarder insulin use: without [place] [facility] use Diabetes mellitus complication status: without complication Qualified Code(s): E11.9 - Type 2 diabetes mellitus without complications Code(s): E11.9 - Type 2 diabetes mellitus without complications Status: Chronic Assessment and Plan: SSI and Accu-Cheks Additional Plan SCD for DVTP Home PPI confirmed Pt is DNR and DNI. Also doesn't want dialysis if needed. I confirmed this with pt and her daughter at bedside. Updated them with pt's status and treatment plan code status: DNR and DNI critical care time spent: 34 minutes Due to a high probability of clinically significant, life threatening deterioration, the patient required my highest level of preparedness to intervene emergently and I personally spent this critical care time directly and personally managing the patient. This critical care time included obtaining a history; examining the patient; pulse oximetry; ordering and review of studies; arranging urgent treatment with development of a management plan; evaluation of patient's response to treatment; frequent reassessment; and discussions with other providers. It was exclusive of separately billable procedures and treating other patients and teaching time. Please see Assessment and Plan section and the rest of the note for further information on patient assessment and treatment Subjective Date/time seen: 12/29/19 11:51 REASON FOR CONSUL
[2019-12-29 12:50] LABS: Glucose Point of Care 105 (65-105)
[2019-12-29 12:58] LABS: Lactic Acid Reflex 1.5 mmol/L (0.7-2.1)
--- NOTE | 2019-12-29 13:09 | PCDIET ---
ICU Rounding Note: Pt current nutrition is Regular. Nutrition recommendation: Continue regular diet Last recorded weight is 114.5 kg. Bowel Motility: Labs Reviewed:Na 147, BUN 60, Cr3.7 Meds Noted:Nabicarb, protonix, novolog, Additional Notes: pt with declining renal function, and denies wanting mechanical ventilation. Pt intake is very poor, refusing most meals, DNR. Following daily in ICU rounds. Assessing/reassessing every 5 days.
[2019-12-29 17:20] LABS: Creatinine Urine 153.8 mg/dL
[2019-12-29 17:27] LABS: Potassium Urine Random 56.6 meq/L
[2019-12-29 17:35] LABS: Sodium Urine Random < 5 meq/L
--- NOTE | 2019-12-29 17:58 | PM.PNNEP ---
Progress Note: A&P Assessment and Plan (1) Acute renal failure (ARF): Qualifiers: Acute renal failure type: unspecified Qualified Code(s): N17.9 - Acute kidney failure, unspecified Code(s): N17.9 - Acute kidney failure, unspecified Status: Acute Assessment and Plan: due to ATN from: - hemodynamic instability - shock - prerenal azotemia/volume depletion (low urine sodium) renal ultrasound normal follow I/Os and repeat labs patient and family have made it clear they do not want to pursue dialysis as a treatment option (2) Septic shock: Code(s): A41.9 - Sepsis, unspecified organism; R65.21 - Severe sepsis with septic shock Status: Acute Assessment and Plan: presumably due to pneumonia on pressor therapy continue antibiotics follow cultures (3) HCAP (healthcare-associated pneumonia): Code(s): J18.9 - Pneumonia, unspecified organism Status: Acute Assessment and Plan: based on imaging to date on antibiotics follow cultures (4) Anemia: Qualifiers: Anemia type: unspecified type Qualified Code(s): D64.9 - Anemia, unspecified Code(s): D64.9 - Anemia, unspecified Status: Chronic Assessment and Plan: due to ANGELIQUE and acute illness follow trend of H/H transfuse per protocol (5) Diabetes: Qualifiers: Diabetes mellitus complication status: without complication Diabetes mellitus exterminator helper termite insulin use: without exterminator helper termite use Diabetes mellitus type: type 2 Qualified Code(s): E11.9 - Type 2 diabetes mellitus without complications Code(s): E11.9 - Type 2 diabetes mellitus without complications Status: Chronic Assessment and Plan: follow accuchecks on SSI Will continue to follow. Subjective Date/time seen: 12/29/19 17:58 Patient clinical status has deteriorated since I last saw her - requiring more oxygen to maintain oxygen saturations along with decreased urine output; remains on vasopressor therapy to maintain MAP; no acute distress mentioned. Exam Narrative: Exam Narrative: General: WD/WN female in NAD Heart: tachycardic, normal S1 and S2; no rub Lungs: coarse with bibasilar crackles Abdomen: soft, nontender, nondistended, positive bowel sounds Extremities: no cyanosis or clubbing; trace edema Skin: warm and dry Objective Data Vital Signs Vital Signs: Vital Signs Temp Pulse Resp BP Pulse Ox 12/29/19 15:08 109 H 23 H 12/29/19 15:00 109 H 22 H 12/29/19 14:00 110 H 22 H 127/112 H 22 L 12/29/19 12:00 37.2 C 111 H 21 H 121/44 L 95 12/29/19 10:03 95 12/29/19 10:00 110 H 28 H 112/42 L 94 12/29/19 09:24 112 H 23 H 12/29/19 09:13 113 H 24 H 12/29/19 09:05 100 12/29/19 08:00 37.4 C 110 H 22 H 107/37 L 91 12/29/19 07:08 92 12/29/19 06:00 114 H 22 H 126/39 L 91 12/29/19 04:00 36.8 C 114 H 24 H 122/41 L 90 12/29/19 02:35 109 H 22 H 12/29/19 02:28 108 H 24 H 12/29/19 02:00 104 H 20 115/50 L 91 12/29/19 00:00 105 H 26 H 122/47 L 87 L 12/28/19 22:00 104 H 17 113/37 L 91 12/28/19 20:50 106 H 24 H 12/28/19 20:42 106 H 28 H 98 12/28/19 20:00 36.9 C 105 H 20 111/40 L 90 Intake/Output Intake/Output: Intake & Output 12/26/19 12/27/19 12/28/19 12/29/19 23:59 23:59 23:59 23:59 Intake Total 1400 1700 Output Total 500 30 Balance 900 1670 Meds/Results Medications: Active Medications Generic Name Dose Route Start Last Admin Trade Name Freq PRN Reason Stop Dose Admin Albuterol 5 mg 12/28/19 08:00 12/29/19 14:59 Albuterol Sulf Neb 2.5mg/0.5ml INHALATION 5 mg Q6HRT PRINCE Administration Albuterol 2.5 mg 12/28/19 09:00 Albuterol Sulf Neb 2.5mg/0.5ml INHALATION Q6HRT PRN Shortness Of Breath Dextrose 12.5 gm 12/28/19 06:18 Dextrose 50% Syringe IV PUSH PRN PRN Hypoglycemia P
[2019-12-29] MEDS: SODIUM BICARBONATE 8.4% 150 MEQ in DEXTROSE 5% 1,000 ML 950 ML 50 MEQ IV CONT (18:37)
[2019-12-29 22:20] LABS: Legionella pneumophila Ag Ur Not Detected (Not Detected)
[2019-12-29 23:11] LABS: Glucose Point of Care 96 (65-105)
[2019-12-30] VITALS (16 sets, daily range): BP systolic 92–125; BP diastolic 39–58; PULSE 94–112; RESP 15–25; TEMP 36.3–37.4; O2SAT 91–99
[2019-12-30] MEDS: ALBUMIN HUMAN 25% 25 GM/100 ML 100 ML IVPB ×2 (01:31→08:02)
[2019-12-30] MEDS: IPRATROPIUM BR 0.02% INH SOLN 0.5 MG/2.5 ML VIAL INHALATION ×3 (02:45→14:47)
[2019-12-30] MEDS: ALBUTEROL SULFATE NEB 2.5 MG/0.5 ML INH 5 MG INHALATION ×3 (02:45→14:47)
[2019-12-30 05:57] LABS: Basophils Percent Auto 0.2 % (0.2-1.2); Eosinophils Absolute Auto 0.1 K/mm3 (0-0.3); Eosinophils Percent Auto 1.8 % (0-4.4); Hematocrit 23.3 % (37.0-47.0); Hemoglobin 7.4 g/dL (12.0-15.0); Immature Granulocyte Absolute 0.05 K/mm3 (0.00-0.031); Immature Platelet Fraction Pct 5.7 % (0.9-11.2); Lymphocytes Absolute Auto 0.78 K/mm3 (0.9-3.2); Lymphocytes Percent Auto 15.9 % (18.3-44.2); Mean Corpuscular HGB Conc 31.8 g/dl (32-36); Mean Corpuscular Volume 97.5 fl (80-100); Mean Platelet Volume 13.1 fl (7.4-10.4); Monocytes Absolute Auto 0.4 K/mm3 (0.1-0.6); Monocytes Percent Auto 7.7 % (2.6-8.5); Neutrophils Absolute Auto 3.6 K/mm3 (1.3-6.7); Neutrophils Percent Auto 73.4 % (45.5-73.1); Platelet Count Result 67 k/mm3 (150-375); Red Blood Count 2.39 M/mm3 (4.2-5.4); Red Cell Distribution Width 22.3 % (11.5-14.5); White Blood Count 4.9 K/mm3 (4.5-10.0)
[2019-12-30] MEDS: NOREPINEPHRINE 8 MG/D5W 250 ML 8 MG/250 ML BAG 5.6 MG IV CONT (06:05)
[2019-12-30 06:07] LABS: Lactic Acid 1.7 mmol/L (0.7-2.1)
[2019-12-30 06:08] LABS: Alanine Aminotransferase 22 U/L (4-35); Albumin Level 3.2 g/dL (3.5-5.1); Alkaline Phosphatase 117 U/L (38-126); Aspartate Amino Transferase 40 U/L (14-36); Bilirubin,Total 5.1 mg/dL (0.2-1.3); Blood Urea Nitrogen 61 mg/dL (7-17); Calcium 7.9 mg/dL (8.4-10.2); Carbon Dioxide 22 mmol/L (22-30); Chloride 113 mmol/L (98-107); Estimated CRCL calculation 15 ml/min; Estimated Glomerular Filt Rate 11; Glucose 103 mg/dL (65-105); INR 3.3; Phosphorus 4.3 mg/dL (2.5-4.5); Potassium 4.4 mmol/L (3.4-5.0); Prothrombin Time 32.6 Seconds (11.1-14.7); Sodium 148 mmol/L (137-145)
--- NOTE | 2019-12-30 08:16 | PM.IMPN ---
Progress Note: A&P Assessment and Plan (1) Septic shock: Code(s): A41.9 - Sepsis, unspecified organism; R65.21 - Severe sepsis with septic shock Status: Acute Assessment and Plan: Criteria met on admission. Result of pneumonia. Remains in ICU. Remains on Levophed. Blood pressure reviewed on 12/30/2019 and stable. Telemetry reviewed on 12/30/2019 with sinus rhythm. Discussed with [employer]. Blood cultures negative thus far. MRSA nasal culture negative. Influenza screen negative in the ER. Remains on IV vancomycin and Zosyn. Patient is DNR/DNI. Advised patient unfortunately overall status not improving but actually worsening to consider options. After family available this morning, [employer] was able to speak with them regarding patient's condition. Family did wish to proceed with comfort measures/hospice. Family able to meet with [facility] this afternoon. Family wishes to proceed with hospice. Will discharge from acute care hospital and readmit to general inpatient hospice. (2) HCAP (healthcare-associated pneumonia): Code(s): J18.9 - Pneumonia, unspecified organism Status: Acute Assessment and Plan: Imaging on admission with diffuse bilateral lung disease. Chest x-ray reviewed with [employer] on 12/30/2019 with worsening lung disease. Has been on IV antibiotics as noted above. Requiring high-flow oxygen. Continue nebulizer treatments. Decision now for hospice care as noted. (3) Acute respiratory failure with hypoxia: Code(s): J96.01 - Acute respiratory failure with hypoxia Status: Acute Assessment and Plan: Result of pneumonia, renal failure. Respiratory status worsening as noted above. High-flow oxygen as noted above this morning at time of my exam. Patient moved to BiPAP and on BiPAP at time of decision for hospice. (4) Acute renal failure (ARF): Qualifiers: Acute renal failure type: unspecified Qualified Code(s): N17.9 - Acute kidney failure, unspecified Code(s): N17.9 - Acute kidney failure, unspecified Status: Acute Assessment and Plan: Nephrology consulted and appreciate input. Continue to worsen at 3.90 now today. Will monitor. (5) Acidosis: Code(s): E87.2 - Acidosis Status: Acute Assessment and Plan: Result of acute issues as noted above. Continued on IV bicarb prior to decision for hospice. Oral bicarb discontinued. (6) Cirrhosis: Qualifiers: Ascites presence: unspecified Hepatic cirrhosis type: unspecified hepatic cirrhosis Qualified Code(s): K74.60 - Unspecified cirrhosis of liver Code(s): K74.60 - Unspecified cirrhosis of liver Status: Chronic Assessment and Plan: Recently diagnosed. Continue to monitor with infectious process as noted above. (7) Anemia: Qualifiers: Anemia type: unspecified type Qualified Code(s): D64.9 - Anemia, unspecified Code(s): D64.9 - Anemia, unspecified Status: Chronic Assessment and Plan: Hemoglobin decreased again to 7.4 today. No active signs of bleeding. (8) COPD (chronic obstructive pulmonary disease): Qualifiers: COPD type: unspecified COPD Qualified Code(s): J44.9 - Chronic obstructive pulmonary disease, unspecified Code(s): J44.9 - Chronic obstructive pulmonary disease, unspecified Status: Chronic Assessment and Plan: Continue respiratory treatments as noted above. (9) CHF (congestive heart failure): Qualifiers: Heart failure chronicity: chronic Heart failure type: unspecified Qualified Code(s): I50.9 - Heart failure, unspecified Code(s): I50.9 - Heart failure, unspecified Status: Chronic Assessment and Plan: Echocardiogram with EF greater than 75%, grade 1 diastolic dysfunction and moderate pulmonary hypertension. No diuretic at this time. (10) Diabetes: Qualifiers: Diabetes mellitus compli
--- NOTE | 2019-12-30 09:44 | P.PNNP_ITS ---
Progress Note: A&P Assessment and Plan (1) Acute renal failure (ARF): Qualifiers: Acute renal failure type: unspecified Qualified Code(s): N17.9 - Acute kidney failure, unspecified Code(s): N17.9 - Acute kidney failure, unspecified Status: Acute Assessment and Plan: * due to ATN from: - hemodynamic instability - shock - prerenal azotemia/volume depletion (low urine sodium) * renal ultrasound normal * Urine electrolytes are pre renal. * 2D echo was normal * Creatinine continues to rise. * patient and family have made it clear they do not want to pursue dialysis as a treatment option * Discussed with Dr. Ernandez. She does not want to be intubated either. (2) Septic shock: Code(s): A41.9 - Sepsis, unspecified organism; R65.21 - Severe sepsis with septic shock Status: Acute Assessment and Plan: * presumably due to pneumonia * on pressors still * continue antibiotics * follow cultures (3) HCAP (healthcare-associated pneumonia): Code(s): J18.9 - Pneumonia, unspecified organism Status: Acute Assessment and Plan: * based on imaging to date * on antibiotics * follow cultures: Negative so far (4) Anemia: Qualifiers: Anemia type: unspecified type Qualified Code(s): D64.9 - Anemia, unspecified Code(s): D64.9 - Anemia, unspecified Status: Chronic Assessment and Plan: * due to ANGELIQUE and acute illness * Hemoglobin dropping slowly * transfuse per protocol (5) Diabetes: Qualifiers: Diabetes mellitus type: type 2 Diabetes mellitus halfway insulin use: without halfway use Diabetes mellitus complication status: without complication Qualified Code(s): E11.9 - Type 2 diabetes mellitus without complications Code(s): E11.9 - Type 2 diabetes mellitus without complications Status: Chronic Assessment and Plan: * follow accuchecks * on SSI Will continue to follow. Subjective Date/time seen: 12/30/19 09:44 Interval history: The patient is lying in semi follows position with high-dose oxygen. She is short of breath She has posterior pharyngeal secretions and a cough. Review of Systems Review of Systems: ROS unobtainable: unobtainable due to mental condition Exam Narrative: Exam Narrative: General: WD/WN female in NAD Heart: tachycardic, normal S1 and S2; no rub Lungs: coarse with bibasilar crackles Abdomen: soft, nontender, nondistended, positive bowel sounds Extremities: trace edema Skin: warm and dry without rash Objective Data Vital Signs Vital Signs: Vital Signs - 24 hr 12/29/19 10:00 12/29/19 10:03 12/29/19 12:00 Temperature 37.2 C Pulse Rate 110 H 111 H Respiratory Rate 28 H 21 H Blood Pressure 112/42 L 121/44 L Pulse Oximetry 94 95 95 12/29/19 14:00 12/29/19 15:00 12/29/19 15:08 Temperature Pulse Rate 110 H 109 H 109 H Respiratory Rate 22 H 22 H 23 H Blood Pressure 127/112 H Pulse Oximetry 22 L 12/29/19 16:00 12/29/19 18:00 12/29/19 20:00 Temperature 37.4 C 37.3 C Pulse Rate 102 H 118 H 113 H Respiratory Rate 26 H 24 H 21 H Blood Pressure 104/36 L 126/47 L 126/52 L Pulse Oximetry 94 91 92 12/29/19 20:56 02
--- NOTE | 2019-12-30 09:44 | PM.PNNEP ---
Progress Note: A&P Assessment and Plan (1) Acute renal failure (ARF): Qualifiers: Acute renal failure type: unspecified Qualified Code(s): N17.9 - Acute kidney failure, unspecified Code(s): N17.9 - Acute kidney failure, unspecified Status: Acute Assessment and Plan: due to ATN from: - hemodynamic instability - shock - prerenal azotemia/volume depletion (low urine sodium) renal ultrasound normal Urine electrolytes are pre renal. 2D echo was normal Creatinine continues to rise. patient and family have made it clear they do not want to pursue dialysis as a treatment option Discussed with Dr. Ernandez. She does not want to be intubated either. (2) Septic shock: Code(s): A41.9 - Sepsis, unspecified organism; R65.21 - Severe sepsis with septic shock Status: Acute Assessment and Plan: presumably due to pneumonia on pressors still continue antibiotics follow cultures (3) HCAP (healthcare-associated pneumonia): Code(s): J18.9 - Pneumonia, unspecified organism Status: Acute Assessment and Plan: based on imaging to date on antibiotics follow cultures: Negative so far (4) Anemia: Qualifiers: Anemia type: unspecified type Qualified Code(s): D64.9 - Anemia, unspecified Code(s): D64.9 - Anemia, unspecified Status: Chronic Assessment and Plan: due to ANGELIQUE and acute illness Hemoglobin dropping slowly transfuse per protocol (5) Diabetes: Qualifiers: Diabetes mellitus type: type 2 Diabetes mellitus long-term insulin use: without long-term use Diabetes mellitus complication status: without complication Qualified Code(s): E11.9 - Type 2 diabetes mellitus without complications Code(s): E11.9 - Type 2 diabetes mellitus without complications Status: Chronic Assessment and Plan: follow accuchecks on SSI Will continue to follow. Subjective Date/time seen: 12/30/19 09:44 Interval history: The patient is lying in semi follows position with high-dose oxygen. She is short of breath She has posterior pharyngeal secretions and a cough. Review of Systems Review of Systems: ROS unobtainable: unobtainable due to mental condition Exam Narrative: Exam Narrative: General: WD/WN female in NAD Heart: tachycardic, normal S1 and S2; no rub Lungs: coarse with bibasilar crackles Abdomen: soft, nontender, nondistended, positive bowel sounds Extremities: trace edema Skin: warm and dry without rash Objective Data Vital Signs Vital Signs: Vital Signs - 24 hr 12/29/19 10:00 12/29/19 10:03 12/29/19 12:00 Temperature 37.2 C Pulse Rate 110 H 111 H Respiratory Rate 28 H 21 H Blood Pressure 112/42 L 121/44 L Pulse Oximetry 94 95 95 12/29/19 14:00 12/29/19 15:00 12/29/19 15:08 Temperature Pulse Rate 110 H 109 H 109 H Respiratory Rate 22 H 22 H 23 H Blood Pressure 127/112 H Pulse Oximetry 22 L 12/29/19 16:00 12/29/19 18:00 12/29/19 20:00 Temperature 37.4 C 37.3 C Pulse Rate 102 H 118 H 113 H Respiratory Rate 26 H 24 H 21 H Blood Pressure 104/36 L 126/47 L 126/52 L Pulse Oximetry 94 91 92 12/29/19 20:56 12/29/19 21:02 12/29/19 21:05 Temperature Pulse Rate 110 H 110 H 109 H Respiratory Rate 24 H 23 H 22 H Blood Pressure Pulse Oximetry 93 12/29/19 21:55 12/29/19 23:45 12/30/19 00:00 Temperature 37.2 C Pulse Rate 108 H 109 H Respiratory Rate 22 H 24 H Blood Pressure 126/52 L 123/55 L Pulse Oximetry 92 91 92 12/30/19 01:33 12/30/19 02:46 12/30/19 02:52 Temperature Pulse Rate 112 H 111 H 109 H Respiratory Rate 25 H 23 H 20 Blood Pressure 125/52 L Pulse Oximetry 92 92 12/30/19 02:59 12/30/19 04:00 12/30/19 06:00 Temperature 37.4 C Pulse Rate 110 H 112 H 104 H Respiratory Rate 20 23 H 20 Blood Pressure 122/50 L 119/50 L Pulse Oximetry 92 91 12/30/19 08:00 12/30/19 09:16 12/30/19
[2019-12-30] MEDS: PANTOPRAZOLE SODIUM IV 40 MG VIAL IV PUSH (11:30)
--- NOTE | 2019-12-30 11:52 | PCDIET ---
ICU Rounding Note: Patient on regular diet but is not eating. Currently on bipap, and is DNR/DNI. Last recorded weight is 115.5kg which is decreased. Bowel Motility: Bowel sounds hypoactive; no documented bowel movements. Labs Reviewed: BUN (61), Cr (3.9), Na (148), Cl (113), Alb (3.2) Meds Noted: Albuterol, Sodium Bicarbonate, Levophed, Protonix, Zosyn, Vancomycin, Novolog Additional Notes: Multiple skin issues, per RN, but no large wounds. MD to discuss hospice with family today. Following daily in ICU rounds. Assessing/reassessing every 5 days.
[2019-12-30 12:04] LABS: Glucose Point of Care 104 (65-105)
--- NOTE | 2019-12-30 13:36 | WPDINTPN ---
Progress Note: A&P Assessment and Plan (1) Septic shock: Code(s): A41.9 - Sepsis, unspecified organism; R65.21 - Severe sepsis with septic shock Status: Acute Assessment and Plan: Secondary to HCAP continue sodium bicarb at 50 mL/hour On levophed, maintain MAP > 65 mmHg blood cultures with no growth until now On empiric Vanc and Zosyn Influenza negative (2) HCAP (healthcare-associated pneumonia): Code(s): J18.9 - Pneumonia, unspecified organism Status: Acute Assessment and Plan: See above (3) Acute renal failure (ARF): Qualifiers: Acute renal failure type: unspecified Qualified Code(s): N17.9 - Acute kidney failure, unspecified Code(s): N17.9 - Acute kidney failure, unspecified Status: Acute Assessment and Plan: Likley secondary to sepsis and intranvascular voluem depletion from diuresis worsening creatinine, continue gentle IV hydration with bicarb infusion continue albumin IV Monitor U/O and labs Pt doesn't want HD if needed (4) Acidosis: Code(s): E87.2 - Acidosis Status: Acute Assessment and Plan: Gentle hydration with IVF lactic acid has improved so has her metabolic acidosis on her BMP (5) Cirrhosis: Qualifiers: Ascites presence: unspecified Hepatic cirrhosis type: unspecified hepatic cirrhosis Qualified Code(s): K74.60 - Unspecified cirrhosis of liver Code(s): K74.60 - Unspecified cirrhosis of liver Status: Chronic Assessment and Plan: Ammonia level normal Vit K for elevated INR IV Albumin (6) Anemia: Qualifiers: Anemia type: unspecified type Qualified Code(s): D64.9 - Anemia, unspecified Code(s): D64.9 - Anemia, unspecified Status: Chronic Assessment and Plan: Monitor (7) COPD (chronic obstructive pulmonary disease): Qualifiers: COPD type: unspecified COPD Qualified Code(s): J44.9 - Chronic obstructive pulmonary disease, unspecified Code(s): J44.9 - Chronic obstructive pulmonary disease, unspecified Status: Chronic Assessment and Plan: continue scheduled nebulizer treatments (8) CHF (congestive heart failure): Qualifiers: Heart failure chronicity: chronic Heart failure type: unspecified Qualified Code(s): I50.9 - Heart failure, unspecified Code(s): I50.9 - Heart failure, unspecified Status: Chronic Assessment and Plan: and the systolic function is hyperdynamic with estima maya EF of. 75%. Grade 1 diastolic dysfunction, moderate pulmonary hypertension with RVSP of 54 mmHg - continue to monitor (9) Diabetes: Qualifiers: Diabetes mellitus type: type 2 Diabetes mellitus long-term insulin use: without long-term use Diabetes mellitus complication status: without complication Qualified Code(s): E11.9 - Type 2 diabetes mellitus without complications Code(s): E11.9 - Type 2 diabetes mellitus without complications Status: Chronic Assessment and Plan: SSI and Accu-Cheks - blood sugars have been stable Additional Plan SCD for DVTP Home PPI confirmed discussed with and updated them him with patient's plan of care. I did discuss with him regarding hospice which could be an appropriate option for the patient at this time. He stated that he would talk to his daughter today and get back to us. code status: DNR and DNI critical care time spent: 35 minutes Due to a high probability of clinically significant, life threatening deterioration, the patient required my highest level of preparedness to intervene emergently and I personally spent this critical care time directly and personally managing the patient. This critical care time included obtaining a history; examining the patient; pulse oximetry; ordering and review of studies; arranging urgent treatment with development of a management plan; evaluation of patient's response to tr
--- NOTE | 2019-12-30 15:55 | PM.DS ---
DS: Diagnosis Admitting Diagnosis Admitting Diagnosis: Sepsis, unspecified organism Discharge Diagnosis (1) Septic shock: Code(s): A41.9 - Sepsis, unspecified organism; R65.21 - Severe sepsis with septic shock Status: Acute (2) HCAP (healthcare-associated pneumonia): Code(s): J18.9 - Pneumonia, unspecified organism Status: Acute (3) Acute respiratory failure with hypoxia: Code(s): J96.01 - Acute respiratory failure with hypoxia Status: Acute (4) Acute renal failure (ARF): Qualifiers: Acute renal failure type: unspecified Qualified Code(s): N17.9 - Acute kidney failure, unspecified Code(s): N17.9 - Acute kidney failure, unspecified Status: Acute (5) Acidosis: Code(s): E87.2 - Acidosis Status: Acute (6) Cirrhosis: Qualifiers: Ascites presence: unspecified Hepatic cirrhosis type: unspecified hepatic cirrhosis Qualified Code(s): K74.60 - Unspecified cirrhosis of liver Code(s): K74.60 - Unspecified cirrhosis of liver Status: Chronic (7) Anemia: Qualifiers: Anemia type: unspecified type Qualified Code(s): D64.9 - Anemia, unspecified Code(s): D64.9 - Anemia, unspecified Status: Chronic (8) COPD (chronic obstructive pulmonary disease): Qualifiers: COPD type: unspecified COPD Qualified Code(s): J44.9 - Chronic obstructive pulmonary disease, unspecified Code(s): J44.9 - Chronic obstructive pulmonary disease, unspecified Status: Chronic (9) CHF (congestive heart failure): Qualifiers: Heart failure chronicity: chronic Heart failure type: unspecified Qualified Code(s): I50.9 - Heart failure, unspecified Code(s): I50.9 - Heart failure, unspecified Status: Chronic (10) Diabetes: Qualifiers: Diabetes mellitus type: type 2 Diabetes mellitus retirement insulin use: without retirement use Diabetes mellitus complication status: without complication Qualified Code(s): E11.9 - Type 2 diabetes mellitus without complications Code(s): E11.9 - Type 2 diabetes mellitus without complications Status: Chronic (11) Depression: Qualifiers: Depression Type: unspecified Qualified Code(s): F32.9 - Major depressive disorder, single episode, unspecified Code(s): F32.9 - Major depressive disorder, single episode, unspecified Status: Chronic DS: Summary Hospital Course Reason for hospitalization: Shortness of breath, decreased level of consciousness. Hospital Course: Date of Service of Discharge: December 30, 2019. History of Present Illness: Patient is a 69-year-old recently placed at [facility] after hospitalization at [facility] as result of liver failure. Patient had been transferred to [facility] from [facility] [place] [place] Emergency Department for ERCP biliary stent placement. She was discharged from [facility] on 12/20/2019 incentive [place] for rehab.Presentation, patient was noticed to have sudden shortness of breath with decreased level of consciousness. Patient's pulse ox was noted to be 78% on room air on arrival of EMS. She was placed on non-rebreather at 15 L with oxygen level increased to 98%. Patient's ammonia level had been normal prior to admission to rehab. She had also been diagnosed with MRSA to the right hand. Patient was noted to have decreased intake recently. On evaluation in the emergency room, findings were consistent with septic shock pneumonia, acute respiratory failure and acute renal failure. Central line placed in the emergency room. Patient was admitted with custom car builder consult for further evaluation and treatment. Course in Hospital: On admission, patient was placed in the ICU. She was seen by custom car builder. Patient was placed on nebulizer treatments along with IV vancomycin and Zosyn. Blood cultures were obtained. Blood cultures we
[2020-01-02 13:38] LABS: Chloride Rand Ur < 20 mmol/L (32-290); Creatinine Random Urine 139 mg/dL (20-275)
== END 2019-12-30 19:45 | disposition hospice, inpatient (51) | DRG 871 ==
LOC: ANHED 23:23 → ANHICU 12-28 08:27 → ANH3MEDSUR 01-02 14:41 → ANHICU 01-02 14:41
PROVIDERS: Internal Medicine; Nurse Practitioner; Admitting Provider Family Medicine; Emergency Provider General Practice; Visit Provider Hospitalist
DX: A41.9 Sepsis, unspecified organism (principal); R65.21 Severe sepsis with septic shock; J18.9 Pneumonia, unspecified organism; J96.01 Acute respiratory failure with hypoxia; N17.0 Acute kidney failure with tubular necrosis; E87.2 Acidosis; K50.90 Crohn's disease, unspecified, without complications; K74.60 Unspecified cirrhosis of liver; D64.9 Anemia, unspecified; J44.9 Chronic obstructive pulmonary disease, unspecified; I50.9 Heart failure, unspecified; B95.62 Methicillin resistant Staphylococcus aureus infection as the cause of diseases classified elsewhere; E11.9 Type 2 diabetes mellitus without complications; F32.9 Major depressive disorder, single episode, unspecified; M15.9 Polyosteoarthritis, unspecified; M06.042 Rheumatoid arthritis without rheumatoid factor, left hand; M06.041 Rheumatoid arthritis without rheumatoid factor, right hand; E55.9 Vitamin D deficiency, unspecified; Z96.659 Presence of unspecified artificial knee joint; Z66 Do not resuscitate; Z90.49 Acquired absence of other specified parts of digestive tract; Z91.81 History of falling; Z95.5 Presence of coronary angioplasty implant and graft; Z87.891 Personal history of nicotine dependence
CPT/HCPCS: 36415; 36556; 36600; 70450; 71045; 74176; 76775; 80053; 81001; 82140; 82436; 82570; 82805; 82948; 83605; 83690; 83735; 83880; 84100; 84133; 84300; 84484; 85025; 85055; 85610; 85730; 85999; 87040; 87081; 87449; 87804; 93005; 93306; 94640; 96374; 96375; 99291; A9270; C1751; C9113; J2543; J3370; J7040; J7070; P9047

== ENCOUNTER 2019-12-30 16:01 | HOS | payer OTHER, MEDICARE, SELFPAY ==
--- NOTE | 2019-12-30 17:08 | PC.NURSE ---
1800-PATIENT ADMITTED TO ICU 6 HOSPICE PATIENT. FAMILY OREINTED TO POC AND POLICIES. ALL QUESTIONS ANSWERED.
[2019-12-30 17:10] VITALS: BP 100/48; PULSE 97; RESP 18; TEMP 36.3; O2SAT 97
[2019-12-30] MEDS: MORPHINE SULFATE 2 MG/ML INJ 1 MG IV PUSH (17:35)
--- NOTE | 2019-12-30 18:33 | PC.NURSE ---
REPORT CALLED TO [facility]U WADE. ALL QUESTIONS ANSWERED. WILL BE TRANSFERRING PATIENT TO [facility].
[2019-12-30] MEDS: LORAZEPAM INJ 2 MG/ML VIAL 1 MG IV PUSH (19:09)
--- NOTE | 2019-12-30 23:56 | PC.NURSE ---
TIME OF - 1944 [facility] OFF NOTIFIED AT 2004- SPOKE WITH LANG FARMER TO RELEASE. [facility]- 2009 SPOKE WITH MIRELA, HE WILL CALL BACK TO LET US KNOW IF PT IS A CANDIDATE. JEANE WAS NOTIFIED BY VU GARCES DR. NOTIFIED BY VU GARCES 2047- CALLED MIRELA AT [facility], TOLD HIM SPOUSE DID NOT WANT TO BE CONTACTED. HE STATED OK TO TAKE PT TO [facility]. HE STATED FAMILY SHOULD NOT BE TOLD THEY ARE CALLING, THAT IT MAY INHIBIT A DONATION. 2052-MIRELA FROM [facility] CALLED BACK, STATED THEY WILL STILL REACH OUT TO THE FAMILY FOR DONATION. 2149- PER MIRELA AT [facility], THE PATIENT IS NOT A CANDIDATE AND OK TO NOTIFY THE HOME. [facility]U GARCES WILL NOTIFY HOME. ( PT FAMILY DID CONTACT THE [facility] PRIOR TO OUR CONTACT WITH THEM).
--- NOTE | 2019-12-31 00:47 | PC.NURSE ---
This patient, Caren Garnica, was received from [ICU ] on 12/30/19 at 1920. Personal belongings list checked and signed. Patient/family oriented to unit policies and routines
--- NOTE | 2019-12-31 08:25 | PM.IMHP ---
H&P: HPI History of Present Illness Chief complaint: renal failure/respiratory failure Narrative: Patient prior to being able to be seen. History of Present Illness: Caren Garnica is a 69 year old female who had been admitted to the ICU with septic shock, pneumonia, acute respiratory failure and acute renal failure. Patient with recent diagnosis of cirrhosis at another facility. Patient was being treated with IV antibiotics in the form of vancomycin and Zosyn. She additionally was requiring nebulizer treatments. Patient continued to have worsening status while in the ICU. She was requiring high-flow oxygen. She was requiring Levophed for blood pressure support. Creatinine continued to increase with decreased urine output. She was receiving IV bicarb in addition to other treatments. With status worsening, patient and family did wish to meet with hospice. After meeting with [facility], family did decide to move to hospice care. Patient qualified for general inpatient hospice status. Review of Systems Review of Systems: Narrative: Patient . [facility] Social History Social History Social History: Patient is [place] to Braden who is her durable power deputy prosecuting attorney for healthcare. She is a do not resuscitate. She had 4 children. 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 Patient quit smoking 2 weeks ago Smoking packs per day: 1 Smoking cigarettes per day: 20.0 Years smoked: 48 Smoking pack-years: 48.00 Smoking status: Former smoker Tobacco type: cigarettes Alcohol intake: former Substance use type: does not use Gender identity (if verbalized by the patient): Female Spiritual care concerns: No Agree to blood products: Yes Meds Home Medications and Allergies Home Medications Medication Instructions Recorded Confirmed Type albuterol sulfate 90 mcg/actuation 2 puff INHALATION Q4H PRN 09/20/19 12/28/19 History aerosol inhaler atorvastatin 10 mg tablet 10 mg PO DAILY 09/20/19 12/28/19 History cetirizine 10 mg tablet 10 mg PO DAILY PRN tablet 09/20/19 12/28/19 History cholecalciferol (vitamin D3) 125 5,000 unit PO DAILY 09/20/19 12/28/19 History mcg (5,000 unit) capsule cholecalciferol (vitamin D3) 50,000 unit PO WEEKLY 09/20/19 12/28/19 History 25,000 unit capsule citalopram 20 mg tablet 20 mg PO DAILY 09/20/19 12/28/19 History cyanocobalamin (vitamin B-12) 100 mcg SUB-Q MONTHLY 09/20/19 12/28/19 History 1,000 mcg/mL injection kit folic acid 1 mg tablet 1 mg PO DAILY 09/20/19 12/28/19 History furosemide 20 mg tablet 20 mg PO QAM PRN 09/20/19 12/28/19 History gabapentin 800 mg tablet 800 mg PO QID tablet 09/20/19 12/28/19 History hydroxychloroquine 200 mg tablet 400 mg PO DAILY #60 tablet 09/20/19 12/28/19 Rx melatonin 10 mg tablet 5 mg PO DAILY tablet 09/20/19 12/28/19 History metformin 500 mg tablet 500 mg PO BID 09/20/19 12/28/19 History metoprolol succinate 50 mg 50 mg PO DAILY 09/20/19 12/28/19 History tablet,extended release 24 hr pantoprazole 40 mg tablet,delayed 40 mg PO QAM 09/20/19 12/28/19 History release potassium chloride 20 mEq 10 meq PO DAILY 09/20/19 12/28/19 History tablet,extended release tramadol 50 mg tablet 50 mg PO Q6H PRN tablet 09/20/19 12/28/19 History Allergies Allergy/AdvReac Type Severity Reaction Status Date / Time doxycycline Allergy Unknown Rash Verified 12/27/19 22:36 indomethacin Allergy Unknown Rash Verified 12/27/19 22:36 mesalamine [From Asacol] Allergy Unknown Hives Verified 12/27/19 22:36 Vital Signs Vital Signs - 24 hr 12/30/19 17:10 Temperature 97.3 F L Pulse Rate 97 Respiratory Rate 18 Blood Pressure 100/48 L Pulse Oximetry 97 Exam Narrative: Exam Narrative: Unable to perform as patient prior to being seen. Assessment and Plan Assessment and plan (1) Acute respiratory failure with hypoxia: Code(s): J96.01 - Acute respiratory richelle
--- NOTE | 2019-12-31 08:25 | PM.DDS ---
Discharge Sum: Prov Provider Primary care physician: UNKNOWN,DOCTOR Admitting provider: Kory Montana MD Attending physician on admission: Anahi Duran Consults: [facility] Pronouncing clinician: Zhane ClydeChepe Kirk Discharge Sum: Diag PCOD Acute respiratory failure due to pneumonia, renal failure, cirrhosis. Contributing Factors (1) Acute respiratory failure with hypoxia: (2) HCAP (healthcare-associated pneumonia): (3) Acute renal failure (ARF): (4) Cirrhosis: (5) Hospice care patient: Discharge Sum: Summary Date and Time Date of admission: 12/30/19 16:01 Date of : 12/30/19 Time of : 19:45 Summary Details: History of Present Illness: Patient was a 69 year old female who had been admitted to the ICU with septic shock, pneumonia, acute respiratory failure and acute renal failure. Patient with recent diagnosis of cirrhosis at another facility. Despite aggressive treatment, patient continued to decline. Family wished to pursue comfort care. Family did meet with [facility] on the afternoon of 12/30/2019. After meeting, decision was made to place patient in general inpatient hospice. Course in Hospital: Upon admission to inpatient hospice, patient was started on morphine drip along with IV morphine for breakthrough, IV Ativan and glycopyrrolate for secretions. She was taken off high-flow oxygen. Patient rapidly declined and at 7:45 p.m. on 12/30/2019 with family at her side. Patient comfortable at time of passing. Additional Data Confirmation of as documented by pronouncing clinician: no pulse, no respirations and no heart sounds Family: at bedside Attending/PCP notified?: Yes Attending physician: Kory Montana MD Was code activated?: No Autopsy requested?: No grey goods examiner notified?: Yes Organ bank notified?: Yes Hospice patient?: Yes
== END 2019-12-31 05:35 | disposition expired | DRG 189 ==
LOC: ANH2MED 01-02 16:44 → ANHICU 01-02 16:44
PROVIDERS: Admitting Provider Internal Medicine; Visit Provider Hospitalist
DX: J96.01 Acute respiratory failure with hypoxia (principal); J18.9 Pneumonia, unspecified organism; N17.9 Acute kidney failure, unspecified; Z51.5 Encounter for palliative care; K74.60 Unspecified cirrhosis of liver; Z87.891 Personal history of nicotine dependence
CPT/HCPCS: A9270; J2060; J2270